=== PATIENT | male | born 1990 | race Two or more races ===

== ENCOUNTER 2017-04-21 23:22 | Emergency (ER) | payer OTHER ==
[2017-04-21] MEDS: IV NORMAL SALINE 1000ML BAG 1,000 ML IV (23:45)
[2017-04-22 00:24] LABS: ADD MAN DIFF? NO
[2017-04-22 00:28] LABS: BASO % 0 % (0-3); EOS % 1 % (0-3); HEMATOCRIT 50.5 % (39.0-53.0); HEMOGLOBIN 16.9 g/dL (13.0-17.5); LYMPH # 2.1 x10^3/uL (1.0-4.8); LYMPH % 18 % (24-48); MEAN CORPUSCULAR HEMOGLOBIN 29 pg (25-35); MEAN CORPUSCULAR HGB CONC 33 g/dL (31-37); MEAN CORPUSCULAR VOLUME 88 fL (79-100); MONO % 5 % (0-9); NEUT % 77 % (31-73); PLATELET COUNT 212 x10^3/uL (140-400); RED BLOOD COUNT 5.73 x10^6/uL (4.30-5.70); RED CELL DISTRIBUTION WIDTH 12.6 % (11.5-14.5); WHITE BLOOD COUNT 11.5 x10^3/uL (4.0-11.0)
[2017-04-22] MEDS: LIDO:MAALOX:DONNATAL 1:1:1 15 ML SINGLE DOSE SWSW (00:49)
[2017-04-22 00:53] LABS: ANION GAP 13 (6-14); BLOOD UREA NITROGEN 18 mg/dL (8-26); BUN/CREATININE RATIO 18 (6-20); CALCIUM 9.2 mg/dL (8.5-10.1); CARBON DIOXIDE 28 mmol/L (21-32); CHLORIDE 100 mmol/L (98-107); GLUCOSE 114 mg/dL (70-99); POTASSIUM 3.9 mmol/L (3.5-5.1); SODIUM 141 mmol/L (136-145)
[2017-04-22 00:56] LABS: ALBUMIN 4.5 g/dL (3.4-5.0); ALBUMIN/GLOBULIN RATIO 1.1 (1.0-1.7); ALK PHOS 83 U/L (46-116); ALT (SGPT) 47 U/L (16-63); AST (SGOT) 35 U/L (15-37); TOTAL BILIRUBIN 0.6 mg/dL (0.2-1.0); TOTAL PROTEIN 8.5 g/dL (6.4-8.2)
[2017-04-22] MEDS ORDERED: HYOSCYAMINE 0.125 MG TAB.RAPDIS PO (01:45)
== END 2017-04-22 01:47 | disposition home or self-care (01) ==
LOC: ER 04-22 01:47
DX: G89.29 Other chronic pain (principal); R10.84 Generalized abdominal pain; R11.2 Nausea with vomiting, unspecified; R19.7 Diarrhea, unspecified; I10 Essential (primary) hypertension
CPT/HCPCS: 36415; 80053; 83690; 85025; 96360; 99284-25; J7030

== ENCOUNTER 2020-01-05 23:35 | Emergency (ER) | payer OTHER ==
[~2020-01-05] VITALS: Ht 172.7 cm; Wt 72.0 kg
[~2020-01-05 23:35] MED LIST: HYOS0.1265 SL
[2020-01-06 00:24] LABS: BILIRUBIN,URINE NEGATIVE (NEG); CLARITY,URINE CLEAR; COLOR,URINE YELLOW; NITRITE,URINE NEGATIVE (NEG); PROTEIN,URINE NEGATIVE (NEG-TRACE); UROBILINOGEN,URINE 0.2 mg/dL (0.2 mg/dL)
[2020-01-06] MEDS ORDERED: IV NORMAL SALINE 1000ML BAG 1,000 ML IV SCH (00:30)
[2020-01-06] MEDS ORDERED: PANTOPRAZOLE IV PUSH 40 MG VIAL. IVP ONE (00:30)
[2020-01-06] MEDS ORDERED: ONDANSETRON PF 4 MG/2 ML VIAL. IVP ONE (00:30)
[2020-01-06] MEDS ORDERED: LIDO:MAALOX 1:1 20 ML SINGLE DOSE. SWSW ONE (00:30)
[2020-01-06 00:33] LABS: AMORPHOUS SEDIMENT,UR PRESENT /HPF; BACTERIA,URINE 0 /HPF (0-FEW); RBC,URINE 0 /HPF (0-2); SQUAMOUS EPITHELIAL CELL,UR FEW /LPF; WBC,URINE 0 /HPF (0-4)
--- NOTE | 2020-01-06 00:56 | PHYS DOC ---
Past Medical History Past Medical History: Asthma Past Surgical History: No Surgical History Smoking Status: Never Smoker Alcohol Use: Rarely Drug Use: None General Adult EDM: Chief Complaint: ABDOMINAL PAIN HPI: HPI: Patient is a 29 year old male with a history of peptic ulcer disease presents with a 2-hour history of 8 out of 10 burning epigastric pain. Pain radiates to the chest. Pain is worse with movement. Patient states the pain has similar to pain in the past. Pain is burning in nature. Patient has nausea but no vomiting or diarrhea. Patient denies any fevers chills cough or COVID-19 symptoms. Review of Systems: Review of Systems: Constitutional: Denies fever or chills. [] Eyes: Denies change in visual acuity. [] HENT: Denies nasal congestion or sore throat. [] Respiratory: Denies cough or shortness of breath. [] Cardiovascular: Denies chest pain or edema. [] GI: Complains abdominal pain and nausea but no, vomiting, bloody stools or diarrhea. [] : Denies dysuria. [] Musculoskeletal: Denies back pain or joint pain. [] Integument: Denies rash. [] Neurologic: Denies headache, focal weakness or sensory changes. [] Endocrine: Denies polyuria or polydipsia. [] Lymphatic: Denies swollen glands. [] Psychiatric: Denies depression or anxiety. [] Heart Score: Risk Factors: Risk Factors: DM, Current or recent (<one month) smoker, HTN, HLP, family history of CAD, obesity. Risk Scores: Score 0 - 3: 2.5% MACE over next 6 weeks - Discharge Home Score 4 - 6: 20.3% MACE over next 6 weeks - Admit for Clinical Observation Score 7 - 10: 72.7% MACE over next 6 weeks - Early Invasive Strategies Current Medications: Current Medications Medications (Trade) Dose Ordered Sig/Nicole Start Time Stop Time Status Last Admin Dose Admin Multi-Ingredient Mouthwash/Gargle (Gi Cocktail) 20 ml 1X ONCE 01/06/20 00:30 01/06/20 00:31 DC 01/06/20 00:32 20 ML Ondansetron HCl (Zofran) 4 mg 1X ONCE 01/06/20 00:30 01/06/20 00:31 DC 01/06/20 00:32 4 MG Pantoprazole Sodium (PROTONIX VIAL for IV PUSH) 40 mg 1X ONCE 01/06/20 00:30 01/06/20 00:31 DC 01/06/20 00:32 40 MG Sodium Chloride 1,000 ml @ 1,000 mls/hr Q1H 01/06/20 00:30 01/06/20 01:29 01/06/20 00:33 1,000 MLS/HR Allergies: Allergies: Allergies Coded Allergies Type Severity Reaction Last Updated Verified No Known Drug Allergies 12/17/13 No Physical Exam: PE: Constitutional: Well developed, well nourished, no acute distress, non-toxic a ppearance. [] HENT: Normocephalic, atraumatic, bilateral external ears normal, no trismus nose normal. [] Eyes: PERRLA, EOMI, conjunctiva normal, no discharge. [] Neck: Normal range of motion, no tenderness, supple, no stridor. [] Cardiovascular:Heart rate regular rhythm, peripheral pulse intact, cap refill brisk Lungs & Thorax: Bilateral breath sounds clear, no respiratory distress Abdomen: Abdomen soft with epigastric tenderness without guarding or rebound no pulsatile masses Skin: Warm, dry, no erythema, no rash. [] Back: No tenderness, no CVA tenderness. [] Extremities: No tenderness, no cyanosis, no clubbing, ROM intact, no edema. [] Neurologic: Alert and oriented X 3, normal motor function, normal sensory function, no focal deficits noted. [] Psychologic: Affect normal, judgement normal, mood normal. [] Current Patient Data: Labs: Laboratory Tests Test 01/05/20 23:40 01/06/20 01:00 Urine Collection Type Unknown Urine Color Yellow Urine Clarity Clear Urine pH 7.0 Urine Specific [place] 1.020 Urine Protein Negative mg/dL Urine Glucose (UA) Negative mg/dL Urine Ketones (Stick) Negative mg/dL Urine Blood Negative Urine Nitrite Negative Urine Bilirubin Negative Urine Urobilinogen Dipstick 0.2 mg/dL Urine Leukocyte Esterase Negative Urine RBC 0 /HPF Urine WBC 0 /HPF Urine Squamous Epithelial Cells Few /LPF Urine Amorphous Sediment Present /HPF Urine Bacteria 0 /HPF Urine Mucus Slight /LPF White Blood Count 8.2 x10^3/uL Red Blood Count 4.83 x10^6/uL Hemoglobin 14.2 g/dL Hematocrit 42.0 % Mean Corpuscular Volume 87 fL Mean Corpuscular Hemoglobin 29 pg Mean Corpuscular Hemoglobin Concent 34 g/dL Red Cell Distribution Width 12.2 % Platelet Count 186 x10^3/uL Neutrophils (%) (Auto) 83 % Lymphocytes (%) (Auto) 12 % Monocytes (%) (Auto) 4 % Eosinophils (%) (Auto) 0 % Basophils (%) (Auto) 0 % Neutrophils # (Auto) 6.8 x10^3/uL Lymphocytes # (Auto) 1.0 x10^3/uL Monocytes # (Auto) 0.3 x10^3/uL Eosinophils # (Auto) 0.0 x10^3/uL Basophils # (Auto) 0.0 x10^3/uL Sodium Level 140 mmol/L Potassium Level 4.3 mmol/L Chloride Level 105 mmol/L Carbon Dioxide Level 33 mmol/L Anion Gap 2 Blood Urea Nitrogen 10 mg/dL Creatinine 0.8 mg/dL Estimated GFR (Cockcroft-Gault) 115.1 BUN/Creatinine Ratio 13 Glucose Level 135 mg/dL Calcium Level 8.6 mg/dL Total Bilirubin 0.5 mg/dL Aspartate Amino Transf (AST/SGOT) 22 U/L Alanine Aminotransferase (ALT/SGPT) 32 U/L Alkaline Phosphatase 61 U/L Total Protein 6.8 g/dL Albumin 3.8 g/dL Albumin/Globulin Ratio 1.3 Lipase 80 U/L Current Medications Medications (Trade) Dose Ordered Sig/Nicole Route PRN Reason Start Time Stop Time Status Last Admin Dose Admin Sodium Chloride 1,000 ml @ 1,000 mls/hr Q1H IV 01/06/20 00:30 01/06/20 01:29 DC 01/06/20 00:33 Ondansetron HCl (Zofran) 4 mg 1X ONCE IVP 01/06/20 00:30 01/06/20 00:31 DC 01/06/20 00:32 Multi-Ingredient Mouthwash/Gargle (Gi Cocktail) 20 ml 1X ONCE SWSW 01/06/20 00:30 01/06/20 00:31 DC 01/06/20 00:32 Pantoprazole Sodium (PROTONIX VIAL for IV PUSH) 40 mg 1X ONCE IVP 01/06/20 00:30 01/06/20 00:31 DC 01/06/20 00:32 Laboratory Tests Test 01/05/20 23:40 Urine Collection Type Unknown Urine Color Yellow Urine Clarity Clear Urine pH 7.0 (<5.0-8.0) Urine Specific [place] 1.020 (1.000-1.030) Urine Protein Negative mg/dL (NEG-TRACE) Urine Glucose (UA) Negative mg/dL (NEG) Urine Ketones (Stick) Negative mg/dL (NEG) Urine Blood Negative (NEG) Urine Nitrite Negative (NEG) Urine Bilirubin Negative (NEG) Urine Urobilinogen Dipstick 0.2 mg/dL (0.2 mg/dL) Urine Leukocyte Esterase Negative (NEG) Urine RBC 0 /HPF (0-2) Urine WBC 0 /HPF (0-4) Urine Squamous Epithelial Cells Few /LPF Urine Amorphous Sediment Present /HPF Urine Bacteria 0 /HPF (0-FEW) Urine Mucus Slight /LPF Vital Signs: Vital Signs Date Time Temp Pulse Resp B/P (MAP) Pulse Ox O2 Delivery O2 Flow Rate FiO2 01/05/20 23:42 97.9 64 18 128/73 (91) 99 Room Air 97.9 EKG: EKG: [] Radiology/Procedures: Radiology/Procedures: [] Course & Med Decision Making: Course & Med Decision Making Pertinent Labs and Imaging studies reviewed. (See chart for details) [] Patient reassessed at 2:13 AM and the burning is better but still having some discomfort and burning in his throat and chest. Patient was given a dose of morphine to help alleviate symptoms. Symptoms are most likely due to bad esophageal spasms or esophageal reflux. Patient is clinically stable. Patient will be discharged home with outpatient follow-up. Return precautions given. Patient was placed on PPI. Dragon Disclaimer: Dragon Disclaimer: This electronic medical record was generated, in whole or in part, using a voice recognition dictation system. Departure Departure Impression: Primary Impression: Abdominal pain Disposition: 01 HOME, SELF-CARE Condition: STABLE Referrals: NO PCP (PCP) OMKAR JONES MD 2-3 DAYS Patient Instructions: Gastroesophageal Reflux Disease, Adult Additional Instructions: EMERGENCY DEPARTMENT GENERAL DISCHARGE INSTRUCTIONS THANK YOU for coming to [facility] Emergency Department (ED) today and trusting us with your care. We trust that you had a positive experience in our Emergency Department. If you wish to speak to the department Management you can contact the maintenance department manager at . YOUR FOLLOW UP INSTRUCTIONS ARE FOLLOWS: Do you have a private doctor? If you do not have a private doctor, please ask for a resource list of physicians or clinics that may be able to assist you with follow up care. The Emergency Physician has interpreted your x-rays. The X-ray specialist will also review them. If there is a change in the findings you will be notified in 48 hours when at all possible. A lab test or lab culture may have been done, your results will be reviewed and you will be notified if you need a change in treatment. ADDITIONAL INSTRUCTIONS AND INFORMATION Your care today has been supervised by a physician who is specially trained in emergency care. Many problems require more than one evaluation for a complete diagnosis and treatment. We recommend that you schedule your follow up appointment as recommended to ensure complete treatment of your illness or injury. If you are unable to obtain follow up care and continue to have a problem, or if your condition worsens we recommend that you return to the ED. We are not able to safely determine your condition over the phone nor are we able to give sound medical advice over the phone. For these safety reasons, if you call for medical advice we will ask you to come to the ED for further evaluation If you have any questions regarding these discharge instructions please call the ED at . SAFETY INFORMATION In the interest of safety, wellness, and injury prevention; we encourage you to wear your seatbelt, if you smoke; quit smoking, and we encourage your family to use protective helmet for bicycling and other sporting events that present an increased risk for head injury. IF YOUR SYMPTOMS WORSEN OR NEW SYMPTOMS DEVELOP, OR YOU HAVE CONCERNS ABOUT YOUR CONDITION; OR IF YOUR CONDITION WORSENS WHILE YOU ARE WAITING FOR YOUR FOLLOW UP APPOINTMENT; EITHER CONTACT YOUR PRIMARY CARE DOCTOR, THE PHYSICIAN WHOSE NAME AND NUMBER YOU WERE GIVEN, OR RETURN TO THE ED IMMEDIATELY. Scripts Ondansetron Hcl (ZOFRAN) 4 Mg Tablet 1 TAB PO Q6HRS for NAUSEA, #10 TAB Prov: OMKAR YANEZ MD 01/06/20 Esomeprazole Magnesium (NEXIUM CAPSULE) 40 Mg Capsule. 1 CAP PO DAILY, #30 CAP 5 Refills Prov: OMKAR YANEZ MD 01/06/20 Justicifation of Admission Dx: Justifications for Admission: Justification of Admission Dx: N/A OMKAR YANEZ MD Jan 06, 2020 00:55
[2020-01-06 01:21] LABS: BASO % 0 % (0-3); EOS % 0 % (0-3); HEMOGLOBIN 14.2 g/dL (13.0-17.5); LYMPH % 12 % (24-48); MEAN CORPUSCULAR HEMOGLOBIN 29 pg (25-35); MEAN CORPUSCULAR HGB CONC 34 g/dL (31-37); MEAN CORPUSCULAR VOLUME 87 fL (79-100); MONO # 0.3 x10^3/uL (0.0-1.1); MONO % 4 % (0-9); NEUT # 6.8 x10^3/uL (1.8-7.7); NEUT % 83 % (31-73); PLATELET COUNT 186 x10^3/uL (140-400); RED BLOOD COUNT 4.83 x10^6/uL (4.30-5.70); RED CELL DISTRIBUTION WIDTH 12.2 % (11.5-14.5); WHITE BLOOD COUNT 8.2 x10^3/uL (4.0-11.0)
[2020-01-06 01:31] LABS: CALCIUM 8.6 mg/dL (8.5-10.1); CREATININE 0.8 mg/dL (0.7-1.3); GFR 115.1; POTASSIUM 4.3 mmol/L (3.5-5.1)
[2020-01-06 01:36] LABS: ALBUMIN 3.8 g/dL (3.4-5.0); ALBUMIN/GLOBULIN RATIO 1.3 (1.0-1.7); TOTAL BILIRUBIN 0.5 mg/dL (0.2-1.0); TOTAL PROTEIN 6.8 g/dL (6.4-8.2)
[2020-01-06] MEDS ORDERED: ONDA4TAB7 PO (02:15)
[2020-01-06] MEDS ORDERED: ESOM40CA PO (02:15)
[2020-01-06] MEDS ORDERED: MORPHINE SULFATE 4 MG/ML VIAL. IV ONE (02:30)
[2020-01-06 02:58] VITALS: BP 134/74
== END 2020-01-06 03:04 | disposition home or self-care (01) ==
LOC: ER 23:35
DX: R10.13 Epigastric pain (principal); R07.89 Other chest pain; R11.0 Nausea; J45.909 Unspecified asthma, uncomplicated; Z87.11 Personal history of peptic ulcer disease
CPT/HCPCS: 36415; 80053; 81001; 83690; 85025; 96361; 96374; 96375; 99285; C9113; J2270; J2405; J7030